=== PATIENT | male | born 1995 | race Caucasian/White ===

== ENCOUNTER 2019-05-11 21:02 | Emergency (ER) | payer OTHER ==
[2019-05-11 21:08] VITALS: BP 143/79; PULSE 89; TEMP 98.3
--- NOTE | 2019-05-11 21:32 | ED ---
Recheck HPI - General Chief Complaint: Recheck/Abnormal Lab/Rx Stated Complaint: [facility] Time Seen by Provider: 05/11/19 21:09 Source: patient Mode of arrival: ambulatory Limitations: no limitations - History of Present Illness Initial Comments: Jasen a 23-year-old male who presents the ER today for evaluation after a needlestick injury. The patient is a nurse in our hospital. Patient reports he was administering heparin, he had administered heparin when the patient inadvertently hit his hand away and he sustained a needlestick injury to the left hand. Per protocol patient came to the ER for evaluation. Patient denies any complaints. He declines postexposure prophylaxis at this time pending patient's testing. - Related Data Allergies Allergy/AdvReac Type Severity Reaction Status Date / Time No Known Allergies Allergy Verified 05/11/19 21:06 Review of Systems ROS Statement: Those systems with pertinent positive or pertinent negative responses have been documented in the HPI. ROS Other: All systems not noted in ROS Statement are negative. Past Medical History Past Medical History: No Reported History History of Any Multi-Drug Resistant Organisms: None Reported Past Surgical History: No Surgical Hx Reported Past Psychological History: No Psychological Hx Reported Smoking Status: Never smoker Past Alcohol Use History: None Reported Past Drug Use History: None Reported General Exam - General Exam Comments Initial Comments: Physical Exam GENERAL: Patient is well-developed and well-nourished. Patient is nontoxic and well-hydrated and is in no distress. HENT: Normocephalic, Atraumatic. EYES: PERRL, EOMI PULMONARY: Unlabored respirations. CARDIOVASCULAR: RRR ABDOMEN: Non-distended SKIN: No rashes or bruising : Deferred NEUROLOGIC: Alert and oriented Normal speech Normal gait MUSCULOSKELETAL: Moving all extremities with no apparent injury PSYCHIATRIC: No SI/HI Limitations: no limitations Course Vital Signs 05/11/19 21:06 Temperature 98.3 F Pulse Rate 89 Respiratory 16 Rate Blood Pressure 143/79 O2 Sat by Pulse 94 L Oximetry Medical Decision Making - Medical Decision Making The patient was seen and evaluated history is obtained from the patient Blood will be drawn from Jasen and source patient, he will be updated on rapid labs Jasen declined PEP, discharged from ER back to work Disposition Clinical Impression: Needle stick injury Disposition: HOME SELF-CARE Condition: Stable Additional Instructions: Follow up with [facility] Is patient prescribed a controlled substance at d/c from ED?: No Referrals: None,Stated [Primary Care Provider] - 1-2 days
[2019-05-11 22:01] VITALS: RESP 20
== END 2019-05-11 22:02 | disposition home or self-care (01) ==
LOC: EC 21:02
DX: S69.92XA Unspecified injury of left wrist, hand and finger(s), initial encounter (principal); W46.0XXA Contact with hypodermic needle, initial encounter; Y93.89 Activity, other specified; Y92.239 Unspecified place in hospital as the place of occurrence of the external cause; Y99.0 Civilian activity done for income or pay
CPT/HCPCS: 99282